=== PATIENT | female | born 1975 | race African-American/Black ===

== ENCOUNTER 2025-01-18 14:28 | Outpatient (CLI) | payer OTHER ==
[2025-01-18 15:10] LABS: #Basophils 0.03 10x3/uL (0.0-0.2); #Eosinophils Less than 0.03 10x3/uL (0.0-0.5); #Monocytes 0.39 10x3/uL (0.0-1.1); #Neutrophils 3.95 10x3/uL (1.5-8.4); %Basophils 0.5 % (0.0-2.0); %Eosinophils 0.3 % (0.0-6.0); %Lymphocytes 28.7 % (18.0-47.0); %Monocytes 6.3 % (0.0-10.0); %Neutrophils 64.0 % (40.0-75.0); Hematocrit 32.2 % (34.9-44.5); Hemoglobin 11.5 g/dL (12.0-15.5); Mean Corpuscular Hemoglobin 30.8 pg (27.0-33.0); Mean Corpuscular Volume 86.3 fL (81.6-98.3); Platelet Count 274 10x3/uL (150-450); Red Blood Cell (RBC) Count 3.73 10x6/uL (3.90-5.03); White Blood Cell (WBC) Count 6.17 10x3/uL (3.5-10.5)
[2025-01-18 15:59] LABS: Anion Gap 16 mmol/L (10-20); BUN (Urea Nitrogen) 10 mg/dL (7.0-18.7); Calc. Creatinine Clearance 0 mL/min (70-130); Calcium 8.7 mg/dL (7.8-10.44); Carbon Dioxide 24 mmol/L (22-29); Chloride 101 mmol/L (98-107); Glucose 291 mg/dL (70-105); Sodium 137 mmol/L (136-145)
[2025-01-18 16:02] LABS: Potassium 4.1 mmol/L (3.5-5.1)
== END 2025-01-18 14:29 | disposition home or self-care (01) ==
LOC: CSHLAB 14:28
PROVIDERS: ATTEND Specialist
DX: Z01.818 Encounter for other preprocedural examination (principal); C50.911 Malignant neoplasm of unspecified site of right female breast
CPT/HCPCS: 71046; 80048; 85025; 93005; 93010

== ENCOUNTER 2025-01-25 10:34 | Observation (INO) | payer OTHER ==
[2025-01-18 14:45] VITALS: BMI 24.2
[2025-01-25] MEDS ORDERED: Ketorolac Tromethamine 30 MG (1 mL) VIAL ONE (12:35)
[2025-01-25] MEDS ORDERED: Acetaminophen 500 MG TAB ONE (12:35)
[2025-01-25] MEDS ORDERED: Lidocaine 1% PF 5 ML VIAL ONE (13:21)
[2025-01-25] MEDS ORDERED: CEFAZOLIN 2 GM VIAL ONE (13:23)
[2025-01-25] MEDS ORDERED: PROPOFOL 20 ML ONE (13:28)
[2025-01-25] MEDS ORDERED: Bupivacaine/Epinephrine 0.25% 30 ML VIAL ONE ×2 (13:29→13:45)
[2025-01-25] MEDS ORDERED: Rocuronium Bromide 10 MG/ML (10ML VIAL) ONE (13:29)
[2025-01-25] MEDS ORDERED: KETAMINE 100 MG/ML (5ML VIAL) ONE (14:40)
[2025-01-25] MEDS ORDERED: SUGAMMADEX SODIUM 200 MG/2 ML VIAL ONE (17:50)
[2025-01-25] MEDS ORDERED: hydrALAZINE 20 MG/ML VIAL ONE (18:19)
[2025-01-25] MEDS ORDERED: Dextrose 50% Abboject 50 ML SYRINGE SLOW IVP PRN (20:16)
[2025-01-25] MEDS ORDERED: Ondansetron PF 4 MG/2 ML Vial IVP PRN (20:16)
[2025-01-25] MEDS ORDERED: hydrALAZINE 20 MG/ML VIAL SLOW IVP PRN (20:16)
[2025-01-25] MEDS ORDERED: Glucagon 1 MG/ML KIT IM PRN (20:16)
[2025-01-25] MEDS ORDERED: HYDROcodone/Acetaminophen 7.5/325 mg Tablet PO PRN (20:16)
[2025-01-25] MEDS: Gabapentin 300 MG CAP PO SCH (22:19)
[2025-01-25] MEDS: Famotidine 20 MG TAB PO SCH (22:20)
[2025-01-26] MEDS: PNEUMOC 20-VAL CONJ-DIP CRM/PF 0.5 ML SYRINGE IM ONE (01:39)
[2025-01-26 04:24] LABS: #Basophils Less than 0.03 10x3/uL (0.0-0.2); #Eosinophils Less than 0.03 10x3/uL (0.0-0.5); #Monocytes 0.82 10x3/uL (0.0-1.1); #Neutrophils 8.03 10x3/uL (1.5-8.4); %Basophils 0.1 % (0.0-2.0); %Eosinophils 0.1 % (0.0-6.0); %Lymphocytes 6.5 % (18.0-47.0); %Monocytes 8.6 % (0.0-10.0); %Neutrophils 84.1 % (40.0-75.0); Hematocrit 26.9 % (34.9-44.5); Hemoglobin 9.6 g/dL (12.0-15.5); Mean Corpuscular Hemoglobin 31.6 pg (27.0-33.0); Mean Corpuscular Volume 88.5 fL (81.6-98.3); Platelet Count 214 10x3/uL (150-450); Red Blood Cell (RBC) Count 3.04 10x6/uL (3.90-5.03); White Blood Cell (WBC) Count 9.55 10x3/uL (3.5-10.5)
[2025-01-26 04:39] LABS: Anion Gap 15 mmol/L (10-20); BUN (Urea Nitrogen) 20 mg/dL (7.0-18.7); Calc. Creatinine Clearance 106 mL/min (70-130); Calcium 8.0 mg/dL (7.8-10.44); Carbon Dioxide 24 mmol/L (22-29); Chloride 103 mmol/L (98-107); Glucose 337 mg/dL (70-105); Potassium 3.9 mmol/L (3.5-5.1); Sodium 138 mmol/L (136-145)
[2025-01-26] MEDS: metFORMIN 500 MG TAB PO SCH (09:10)
[2025-01-26] MEDS: Lisinopril 20 MG TAB PO SCH (09:10)
[2025-01-26 12:43] VITALS: BP 168/92; TEMP 98.5
[2025-01-26] MEDS: HYDROcodone/Acetaminophen 7.5/325 mg Tablet PO PRN (13:46)
== END 2025-01-26 14:27 | disposition home or self-care (01) ==
LOC: CSHSDC 10:34 → CSHTELE 14:27
PROVIDERS: ADMIT Specialist; ATTEND Specialist
PROC: 0HTV0ZZ Resection of Bilateral Breast, Open Approach (ICD-10-PCS; principal; 2025-01-25)
PROC: 0KXF0Z5 Transfer Right Trunk Muscle, Latissimus Dorsi Myocutaneous Flap, Open Approach (ICD-10-PCS; 2025-01-25)
PROC: 0KXG0Z5 Transfer Left Trunk Muscle, Latissimus Dorsi Myocutaneous Flap, Open Approach (ICD-10-PCS; 2025-01-25)
DX: C50.911 Malignant neoplasm of unspecified site of right female breast (principal); Z15.01 Genetic susceptibility to malignant neoplasm of breast
CPT/HCPCS: 36415; 36416; 80048; 85025; 88307; 94760; A6258; J0360; J1100; J1815; J1885; J2371; J2704; J7120